=== PATIENT | female | born 1995 | race Caucasian/White ===

== ENCOUNTER 2025-05-28 13:30 | Emergency (ER) | payer BC, OTHER ==
[~2025-05-28] VITALS: Ht 172.7 cm; Wt 81.6 kg
[~2025-05-28 13:30] MED LIST: ONDANSETRON ODT8 MG PO; TYLENOL WITH C1 EACH PO
[2025-05-28 13:45] VITALS: PULSE 95; RESP 18; TEMP 97.9
[2025-05-28] MEDS ORDERED: IOPAMIDOL 370 MG/ML 100 ML INFUS..BTL INJ ONE (14:15)
[2025-05-28] MEDS: DICYCLOMINE HCL 20 MG TAB PO ONE (14:39)
[2025-05-28] MEDS ORDERED: DICYCLOMINE HCL20 MG PO (15:18)
[2025-05-28] MEDS ORDERED: CIPRO500 MG PO (15:18)
[2025-05-28] MEDS: SODIUM CHLORIDE 0.9% 1000ML 1,000 ML IV ONE (15:24)
[2025-05-28 16:09] VITALS: BP 116/78; O2SAT 98
== END 2025-05-28 16:00 | disposition home or self-care (01) ==
LOC: FSED 13:35
DX: R10.30 Lower abdominal pain, unspecified (principal); K92.1 Melena; R19.7 Diarrhea, unspecified
CPT/HCPCS: 74177; 80053; 81003; 81025; 85025; 99284; J7030; Q9967